=== PATIENT | male | born 1970 | race American Indian/Alaskan Native ===

== ENCOUNTER 2020-07-06 16:03 | Emergency (ER) | payer OTHER ==
[~2020-07-06] VITALS: Ht 162.6 cm; Wt 95.0 kg
[2020-07-06 16:20] VITALS: BP 192/103
[2020-07-06] MEDS ORDERED: AZITHROMYCIN 500 MG TABLET PO ONE (17:15)
[2020-07-06] MEDS ORDERED: CEFTRIAXONE SODIUM 250 MG/VIAL IM ONE (17:15)
[2020-07-06 17:48] LABS: CLARITY URINE CLEAR (CLEAR); COLOR URINE YELLOW (YELLOW); KETONES URINE NEGATIVE (NEGATIVE); LEUKOCYTE ESTERASE URINE NEGATIVE (NEGATIVE); NITRITE URINE NEGATIVE (NEGATIVE); OCCULT BLOOD URINE NEGATIVE (NEGATIVE); PROTEIN URINE NEGATIVE (NEGATIVE); SPECIFIC GRAVITY URINE 1.038 (1.005-1.030)
[2020-07-06 18:29] LABS: HEPATITIS B SURFACE ANTIGEN NEGATIVE
[2020-07-06 18:59] LABS: HEPATITIS A AB IGM NEGATIVE (NEGATIVE)
[2020-07-09 04:07] LABS: HIV SCREEN 4G Non Reactive (Non Reactive)
[2020-07-10 04:07] LABS: NEISSERIA GONORRHOEAE NAA Negative (Negative)
== END 2020-07-06 17:46 | disposition home or self-care (01) ==
LOC: ER 16:03
DX: N34.2 Other urethritis (principal); Z03.818 Encounter for observation for suspected exposure to other biological agents ruled out; I10 Essential (primary) hypertension; Z86.19 Personal history of other infectious and parasitic diseases; Z91.040 Latex allergy status
CPT/HCPCS: 36415; 81003; 86705; 86709; 86803; 87340; 87389; 87491; 87591; 87635; 93005; 96372; 99284; J0696

== ENCOUNTER 2021-06-28 12:58 | Emergency (ER) | payer OTHER ==
[~2021-06-28] VITALS: Ht 162.6 cm; Wt 82.0 kg
[2021-06-28] MEDS ORDERED: PANTOPRAZOLE SODIUM 40 MG/VIAL IV STA (14:16)
[2021-06-28 15:05] LABS: BASOPHILS % 0.2 % (0.0-2.0); EOSINOPHILS % 0.1 % (0.0-5.0); HEMATOCRIT. 48.8 % (42.0-52.0); HEMOGLOBIN. 17.2 g/dL (14.0-18.0); LYMPHOCYTES % 39.2 % (20.0-50.0); MEAN CORPUSCULAR HEMOGLOBIN 29.3 pg (28.0-32.0); MEAN CORPUSCULAR VOLUME 83.1 fL (80.0-94.0); MEAN PLATELET VOLUME 9.9 fl (7.4-10.4); MONOCYTES % 10.5 % (2.0-8.0); PLATELET 85 x1000/uL (130-400); RED BLOOD CELL COUNT 5.87 mill/uL (4.7-6.1); RED CELL DISTRIBUTION WIDTH 12.7 % (11.6-14.6)
[2021-06-28 15:10] LABS: CHLORIDE 100 mEq/L (98-107)
[2021-06-28 15:13] LABS: INR 0.9; PROTHROMBIN TIME 9.9 sec (9.6-11.0)
[2021-06-28] MEDS ORDERED: IOHEXOL-300 100 ML BOTTLE ONE (17:32)
[2021-06-28] MEDS ORDERED: PROT40 MT (19:25)
[2021-06-28 19:55] VITALS: BP 137/84
== END 2021-06-28 19:55 | disposition home or self-care (01) ==
LOC: ER 12:58
DX: R73.9 Hyperglycemia, unspecified (principal); R74.01 Elevation of levels of liver transaminase levels; I10 Essential (primary) hypertension; Z91.040 Latex allergy status; Z98.890 Other specified postprocedural states
CPT/HCPCS: 36415; 74177; 80053; 82270; 83690; 84484; 85025; 85610; 86850; 86900; 86901; 93005; 96374; 99285; C9113; Q9967